=== PATIENT | male | born 1960 | race Caucasian/White ===

== ENCOUNTER → 2023-11-25 15:03 | Outpatient (REF) | payer OTHER, SELFPAY | LOC: RCS 15:03 | PROVIDERS: ATTENDING PHYSICIAN Internal Medicine Cardiovascular Disease; FAMILY PHYSICIAN Family Medicine | DX: I10 Essential (primary) hypertension (principal) | CPT/HCPCS: 93306 ==

== ENCOUNTER 2024-03-09 08:50 | Day surgery (SDC) | payer OTHER, SELFPAY ==
[2024-03-09] VITALS (11 sets, daily range): BP systolic 127–168; BP diastolic 69–93; BMI 28.5
[2024-03-09 09:29] LABS: Hematocrit 47.3 % (39.0-52.0); Hemoglobin 16.3 g/dL (13.0-18.0); Mean Corp Hgb Conc. 34.5 g/dL (33.0-37.0); Mean Corpuscular Hgb 31.3 pg (27.0-31.0); Mean Corpuscular Volume 90.8 fL (80.0-94.0); Mean Platelet Volume 9.9 fL (7.4-10.4); Platelet Count 183 10^3/uL (130-400); Red Blood Cell Count 5.21 10^6/uL (4.70-6.10); Red Cell Dist. Width 12.5 % (11.5-14.5); White Blood Cell Count 9.6 10^3/uL (4.8-10.8)
[2024-03-09] MEDS: LOW STRENGTH ASPIRIN 81 MG PO (09:33)
[2024-03-09 09:38] LABS: ALT (SGPT) 33 U/L (0-50); AST (SGOT) 27 U/L (17-59); Albumin 4.7 g/dl (3.5-5.0); Alkaline Phosphatase 50 U/L (38-126); Blood Urea Nitrogen 17 mg/dl (9-20); Calcium 9.6 mg/dl (8.4-10.2); Carbon Dioxide 27 mmol/L (22-30); Chloride 105 mmol/L (98-107); Estimated Creatinine Clearance 92 ml/min; Glucose 121 mg/dl (70-99); Potassium 5.1 mmol/L (3.5-5.1); Sodium 142 mmol/L (135-145); Total Bilirubin 0.6 mg/dl (0.2-1.3); Total Protein 7.6 g/dl (6.3-8.2); eGFR > 60.00
--- NOTE | 2024-03-09 09:52 | ITS.CL.CATH ---
Fire Alarm Inspector - Catheterization
Cardiac Catheterization
Procedure Report:
LEFT HEART CATHETERIZATION
Date of Procedure: March 09, 2024
Referring: Alexus Pratt MD, [facility], [facility]
PROCEDURES:
1. Left heart catheterization, coronary angiogram.
2. Right heart catheterization.
3. Ultrasound-guided access
INDICATION: Taras is a 62-year-old gentleman with past medical history of poorly controlled hypertension, hyperlipidemia, tobacco abuse, smoking 1 pack of cigarettes daily for the last 40 years, third-degree heart block with symptomatic syncope
status post Medtronic permanent pacemaker in September 2019, moderate aortic stenosis with recent echocardiogram with mildly reduced LV systolic function, LVEF of 45% with hypokinesis of the mid anteroseptum and apical septum, mitral sclerosis without
stenosis, moderate to severe aortic stenosis, peak aortic valve velocity of 3.6 cm/s, peak and mean transaortic gradients of 53 and 28 mmHg, LVOT diameter of 2.1 cm, dimensionless index of 0.26, stroke-volume index of 31 cc/m� and trace aortic
regurgitation who is referred for a left and right heart catheterization in the setting of ongoing dyspnea on exertion.
ACCESS: Right radial artery, 6 Georgian sheath, under ultrasound guidance
HEMODYNAMICS : (mmHg)
RA (m) : 16
RV (s/d,m) : 39/16, 19
PA (s/d, m) : 32/21, 26
PCWP (m) : 20
PA saturation: 69.4% on room air
AO saturation: 89.5% on room air
RA saturation: 72.2% on room air
Cardiac Output : 5.63 L/min by Nam calculation
Cardiac Index : 2.69 L/min/m-2 by Nam calculation
Systemic vascular resistance: 1236 dsc^(-5)
Pulmonary vascular resistance: 1.42 gomez unit
AO (s/d) : 131/75
LV (s/d) : 168/14
LVEDP : 24
Heart rate: 69 beats per minute
Invasive transaortic mean gradient of 37 mmHg, aortic valve area of 0.97 cm�
CORONARY FINDINGS--the left coronary artery was selectively engaged using a 6 Georgian AL-1 diagnostic catheter.
DOMINANCE: Right
LEFT MAIN: The left main artery is a large-caliber vessel which gives rise to the left anterior descending artery and the left circumflex artery. There is minimal luminal irregularities.
LEFT ANTERIOR DESCENDING: The left anterior descending artery is a medium caliber vessel which gives rise to 1 small caliber high rising diagonal and a second large caliber branching diagonal branch as it courses through the anterior
interventricular groove. It tapers in the midportion towards the apex. There is minimal luminal irregularities.
CIRCUMFLEX: The left circumflex artery is a medium caliber vessel which gives rise to 1 major obtuse marginal branch. There is a mild diffuse atherosclerotic plaque.
RIGHT CORONARY ARTERY: The right coronary artery is a large-caliber, dominant vessel which gives rise to the right posterior descending artery and a sizable right posterolateral system. Mid RCA has a focal 70 to 80% stenosis. Proximal portion of
the RPL proximal to the branches has a 70 to 80% stenosis.
SEDATION: 64 minutes of procedural sedation was utilized. An independent medical assembler was present to assist with and help manage the patient's level of consciousness and physiologic status.
RADIATION SUMMARY: Fluoro Time (min): 8, Dose (mGy): 620.3, DAP (Gy.cm2) : 35.8
Closure Device:
1. Vascular band over right radial artery, 11 cc of air.
2. Manual pressure was held over the right brachial venous access site with successful hemostasis.
CONCLUSIONS
1. Focal 70 to 80% mid RCA stenosis.
2. Tubular 70 to 80% proximal RPL stenosis.
3. Invasive transaortic mean gradient of 37 mmHg, aortic valve area of 0.97 cm� concerning for severe aortic stenosis.
4. Significantly elevated right left-sided filling pressures with normal cardiac output
RECOMMENDATIONS
1. Refer for CT surgery consult for consideration for surgical AVR and one-vessel coronary artery bypass grafting to the RCA in the setting of mild LV dysfunction and the invasive data as above.
2. Wean radial band per protocol.
3. Aggressive management of cardiovascular risk factors.
4. Optimization of current medications to improve filling pressures and symptoms.
5. Eventual referral for outpatient cardiac rehab.
6. Strongly re- encouraged complete smoking cessation.
Alexus Pratt MD, FACC, [facility]
== END 2024-03-09 14:30 | disposition home or self-care (01) ==
LOC: CATH 08:50
PROVIDERS: ATTENDING PHYSICIAN Internal Medicine Interventional Cardiology; CONSULT PHYSICIAN Thoracic Surgery (Cardiothoracic Vascular Surgery); FAMILY PHYSICIAN Family Medicine; OTHER PHYSICIAN Internal Medicine Cardiovascular Disease
DX: I35.0 Nonrheumatic aortic (valve) stenosis (principal); I25.10 Atherosclerotic heart disease of native coronary artery without angina pectoris; I08.0 Rheumatic disorders of both mitral and aortic valves; R06.09 Other forms of dyspnea; Z95.0 Presence of cardiac pacemaker; E78.5 Hyperlipidemia, unspecified; I10 Essential (primary) hypertension; R55 Syncope and collapse; I44.2 Atrioventricular block, complete; F17.210 Nicotine dependence, cigarettes, uncomplicated
CPT/HCPCS: 99152; 99153; 80053; 85027; 93460; C1894; Q9967

== ENCOUNTER → 2024-03-27 13:20 | Outpatient (REF) | payer OTHER, SELFPAY | LOC: RAD 13:20 | PROVIDERS: ATTENDING PHYSICIAN Thoracic Surgery (Cardiothoracic Vascular Surgery); FAMILY PHYSICIAN Family Medicine | DX: I35.0 Nonrheumatic aortic (valve) stenosis (principal); I25.10 Atherosclerotic heart disease of native coronary artery without angina pectoris; Z01.818 Encounter for other preprocedural examination | CPT/HCPCS: 75572; Q9967 ==

== ENCOUNTER 2024-05-01 04:49 | Inpatient (IN) | payer OTHER, SELFPAY ==
[2024-04-02 08:55] VITALS: BMI 28.7
[2024-04-02 09:50] LABS: % Basophils 0.6 % (0-2); % Eosinophils 2.6 % (0-6); % Immature Granulocytes 0.5 % (0-0.5); % Lymphocytes 21.4 % (20.5-51.1); % Neutrophils 62.9 % (42.2-75.2); Absolute Basophils 0.1 10^3/uL (0-0.2); Absolute Eosinophils 0.2 10^3/uL (0-0.7); Absolute Lymphocytes 1.9 10^3/uL (1.2-3.4); Absolute Monocytes 1.1 10^3/uL (0.1-0.6); Absolute Neutrophils 5.6 10^3/uL (1.4-6.5); Hematocrit 44.3 % (39.0-52.0); Hemoglobin 15.7 g/dL (13.0-18.0); Mean Corp Hgb Conc. 35.4 g/dL (33.0-37.0); Mean Corpuscular Hgb 31.2 pg (27.0-31.0); Mean Corpuscular Volume 88.1 fL (80.0-94.0); Mean Platelet Volume 9.9 fL (7.4-10.4); Nucleated Red Blood Cells % 0 % (-); Platelet Count 176 10^3/uL (130-400); Red Blood Cell Count 5.03 10^6/uL (4.70-6.10); Red Cell Dist. Width 12.3 % (11.5-14.5); White Blood Cell Count 8.8 10^3/uL (4.8-10.8)
[2024-04-02 10:00] LABS: INR 0.89; PT 12.5 Sec (11.4-14.6)
[2024-04-02 10:01] LABS: Urine Albumin Negative (Neg - Trace); Urine Bilirubin Negative (Negative); Urine Character Clear (Clear); Urine Color Yellow; Urine Glucose Negative (Negative); Urine Ketone Negative (Negative); Urine Leukocyte Negative (Negative); Urine Nitrite Negative (Negative); Urine Occult Blood Negative (Negative); Urine Urobilinogen Negative (Neg - 1+)
[2024-04-02 10:01] LABS: APTT 34.6 Sec (23.4-35.0)
[2024-04-02 10:29] LABS: ALT (SGPT) 43 U/L (0-50); AST (SGOT) 31 U/L (17-59); Albumin 4.7 g/dl (3.5-5.0); Alkaline Phosphatase 69 U/L (38-126); Blood Urea Nitrogen 18 mg/dl (9-20); Calcium 9.6 mg/dl (8.4-10.2); Carbon Dioxide 25 mmol/L (22-30); Chloride 102 mmol/L (98-107); Direct Bilirubin 0.2 mg/dl (0.0-0.4); Estimated Creatinine Clearance 92 ml/min; Glucose 132 mg/dl (70-99); Potassium 4.3 mmol/L (3.5-5.1); Sodium 138 mmol/L (135-145); Total Bilirubin 0.8 mg/dl (0.2-1.3); Total Protein 7.6 g/dl (6.3-8.2); eGFR > 60.00
--- NOTE | 2024-04-02 10:30 | CM ---
CM met w/ patient, sig. other/Jes and brother, Rodrigue during PATs for planned AVR, 04/17.
Pt. resides w/ sig. other in a private 2 story home w/ 2-3 LINDA. Functionally, patient is indep. w/ ADLs, mobility without the use of any assisted device. 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
Pt. has RX plan and uses [facility] in [place] for prescription needs.
Reviewed pre and post op routines.
Soap, shower instructions and Cardiac Surgery booklet provided.
Discussed post op restrictions to include lifting, driving, flying and sternal precautions.
Discussed post op MD appointments, Cardiac Rehab and visit from CT Transitional Care RN.
Plan for AVR 04/17
Anticipated DC plan is for home w/ CT Transitional Care RN.
CM to follow.
[2024-04-02 10:51] LABS: Glycohemoglobin (HgbA1c) 5.9 % (4.0-5.6)
[2024-05-01] VITALS (15 sets, daily range): BP systolic 85–152; BP diastolic 59–84; BMI 27.7
[2024-05-01] MEDS: MAGNESIUM OXIDE 500 MG PO (05:48)
[2024-05-01] MEDS: LOPRESSOR 25 MG PO (05:48)
[2024-05-01] MEDS: BACTROBAN 2% OINTMENT 1 APPLIC NASAL ×2 (05:48→20:20)
[2024-05-01] MEDS: PROTONIX 40 MG PO (05:48)
--- NOTE | 2024-05-01 06:30 | W.CVOR.SURPR ---
CVOR Surgeon Immed Pre Op
-
I have examined this patient prior to performance of the scheduled procedure.
The patient's condition is unchanged from the time of the dictated/written History and
Physical and the patient is able to undergo the scheduled procedure.
AVR (bio) + CABG + PHILOMENA Clip
--- NOTE | 2024-05-01 06:56 | PTCARENOTE ---
admitted pt to 2260, NPO and 2 showers at home confirmed, clipped and prepped with CHG wipes, home med list reviewed, transported to [facility]
[2024-05-01 07:16] LABS: Urine Albumin 2+ (Neg - Trace); Urine Bilirubin Negative (Negative); Urine Character Clear (Clear); Urine Color Yellow; Urine Glucose Negative (Negative); Urine Ketone Negative (Negative); Urine Leukocyte Negative (Negative); Urine Nitrite Negative (Negative); Urine Occult Blood 2+ (Negative); Urine Urobilinogen Negative (Neg - 1+)
[2024-05-01 07:30] LABS: ACT+ - POC 96 Seconds (82-134)
[2024-05-01 07:41] LABS: B.E. - POC -0.5 mmol/L; Glucose - POC 136 mg/dl (70-99); HCO3 - POC 25 mmol/L (21-28); Hematocrit - POC 36 % PCV (42-52); Hemodilution- POC No; Hemoglobin Calculated - POC 12.4; Ionized Calcium - POC 1.26 mmol/L (1.15-1.33); Lactate - POC 0.58 mmol/L (0.36-0.75); O2 Saturation %Calculated-POC 99.9 % (94-98); PCO2 - POC 44 mmHg (35-48); PO2 - POC 356 mmHg (83-108); Potassium - POC 4.3 mmol/L (3.5-5.1); Sodium - POC 140 mmol/L (136-145); Specimen Type - POC Arterial; pH - POC 7.37 (7.35-7.45)
[2024-05-01] MEDS: ANCEF 10 IV ×2 (08:00→10:45)
[2024-05-01 08:38] LABS: B.E. - POC 1.7 mmol/L; Glucose - POC 156 mg/dl (70-99); HCO3 - POC 27 mmol/L (21-28); Hematocrit - POC 36 % PCV (42-52); Hemodilution- POC Yes; Hemoglobin Calculated - POC 12.2; Ionized Calcium - POC 1.13 mmol/L (1.15-1.33); Lactate - POC 0.88 mmol/L (0.36-0.75); O2 Saturation %Calculated-POC 99.9 % (94-98); PCO2 - POC 47 mmHg (35-48); PO2 - POC 274 mmHg (83-108); Potassium - POC 5.8 mmol/L (3.5-5.1); Sodium - POC 139 mmol/L (136-145); Specimen Type - POC Arterial; pH - POC 7.38 (7.35-7.45)
[2024-05-01 09:18] LABS: ACT+ - POC 543 Seconds (82-134)
[2024-05-01 09:34] LABS: B.E. - POC 0.4 mmol/L; Glucose - POC 187 mg/dl (70-99); HCO3 - POC 26 mmol/L (21-28); Hematocrit - POC 35 % PCV (42-52); Hemodilution- POC Yes; Ionized Calcium - POC 1.16 mmol/L (1.15-1.33); O2 Saturation %Calculated-POC 99.9 % (94-98); PCO2 - POC 44 mmHg (35-48); PO2 - POC 289 mmHg (83-108); Potassium - POC 6.6 mmol/L (3.5-5.1); Sodium - POC 138 mmol/L (136-145); Specimen Type - POC Arterial; pH - POC 7.38 (7.35-7.45)
[2024-05-01 09:35] LABS: Urine Mucus Few; Urine Urothelial Cell 0-2 /LPF (FEW)
[2024-05-01 09:36] LABS: Urine Amorphous Seen
[2024-05-01 09:37] LABS: Urine White Cell 0-2 /HPF (0-5)
[2024-05-01 09:48] LABS: ACT+ - POC 585 Seconds (82-134)
[2024-05-01 10:10] LABS: B.E. - POC 1.2 mmol/L; Glucose - POC 176 mg/dl (70-99); HCO3 - POC 27 mmol/L (21-28); Hematocrit - POC 35 % PCV (42-52); Hemodilution- POC Yes; O2 Saturation %Calculated-POC 99.1 % (94-98); PCO2 - POC 48 mmHg (35-48); PO2 - POC 145 mmHg (83-108); Potassium - POC 5.3 mmol/L (3.5-5.1); Sodium - POC 142 mmol/L (136-145); Specimen Type - POC Arterial; pH - POC 7.36 (7.35-7.45)
[2024-05-01 10:16] LABS: ACT+ - POC 98 Seconds (82-134)
[2024-05-01 10:51] LABS: B.E. - POC -1.8 mmol/L; Glucose - POC 118 mg/dl (70-99); HCO3 - POC 25 mmol/L (21-28); Hematocrit - POC 34 % PCV (42-52); Hemodilution- POC Yes; Hemoglobin Calculated - POC 11.5; Ionized Calcium - POC 1.27 mmol/L (1.15-1.33); PCO2 - POC 51 mmHg (35-48); PO2 - POC 499 mmHg (83-108); Potassium - POC 4.1 mmol/L (3.5-5.1); Sodium - POC 144 mmol/L (136-145); Specimen Type - POC Arterial
[2024-05-01 10:54] LABS: ACT+ - POC > 1003 Seconds (82-134)
[2024-05-01 10:54] LABS: ACT+ - POC > 1003 Seconds (82-134)
--- NOTE | 2024-05-01 11:11 | CM ---
Chart reviewed. Patient is in the OR today. Patient is independent of ADLS, lives with his significant other in a 2 STH, 2-3 LINDA, 0 DME. Plan is for the patient to return home with CT Transitional RN. CM to follow
--- NOTE | 2024-05-01 11:14 | W.PN.CT.SURG ---
CT Surgery Operative Note
-
CARDIAC SURGERY OPERATIVE REPORT
Preoperative Diagnosis: Aortic valve stenosis with CAD
Postoperative Diagnosis: Same
Procedure(s) Performed:
1. Standard sternotomy with aortic and right atrial cannulation
2. Coronary bypass grafting x 2 [RSVG to RPDA sequential to RPL]
3. Surgical aortic valve replacement [25 mm bioprosthesis]
4. Left atrial appendage exclusion [35 mm clip]
5. Placement of temporary atrial and ventricular pacing wires
6. Intraoperative interrogation of PPM
7. Transesophageal echocardiography
8. Endoscopic vein harvest of the right lower extremity
Date of Surgery: 05/01/24
Comorbidities:
1. Severe aortic valve stenosis, symptomatic
2. Third-degree heart block, status post pacemaker implantation preoperatively
3. Hypertension
4. Hyperlipidemia
5. Reduced left ventricular ejection fraction with EF of 45%, chronic congestive systolic and diastolic heart failure
6. Mild mitral valve insufficiency
7. Single-vessel coronary artery disease
8. Obese with a BMI of 27
Attending Surgeon: Zaire Gonzalez MD, MS
Assistants: Roxana Stanley PA-C (present and necessary to metal moulder's assistant, retraction, suction, exposure, suture management, and wound closure under my direction), Zaire Coffey PA-C (Endo vein harvest)
Anesthesiology: Emery Oliver MD and Tara Denton CRNA
Scrub and Circulating RNs: Alma Delia Herrera RN, Alva Gaitan RN
Prior Authorization Technician: Sam Estrada CCP
Anesthesia: GETA
EBL: per perfusion records
Products: none
CPB Time: 108 minutes
Aortic Cross Clamp Time: 88 minutes
Indication(s) for Procedures: This is a 63-year-old male with multiple comorbidities including coronary artery disease and severe aortic valve stenosis. He has reduced left ventricular ejection fraction with hypokinesis of the mid anterior septum
and apical septum. He has become more recently symptomatic in the form of shortness of breath with increased fatigue at work, this has become apparent over the last 6 months. His mean aortic valve gradient was 28 on invasive measurements with a
max velocity of 3.6 across his valve, I do believe he has low-flow low gradient severe aortic valve stenosis. Given his elevated [id number] score he was also counseled about management of his left atrial appendage.
Aortic Valve Description: Heavily calcified aortic valve, trileaflet with mostly calcification towards the body and annulus of the noncoronary cusp. Left and right coronary ostia within normal anatomic positions.
Findings: There is left ventricular ejection fraction roughly was low normal at 50%. Following surgery his EF was 60% with no significant new regional wall motion abnormalities. His aortic valve was heavily calcified with infiltration of calcium
into the noncoronary cusp. His valve was replaced with a 25 mm prosthesis secured in place with a total of 16 nonpledgeted 2 Ethibond sutures with core knots. Both left and right coronary ostia were free of any obstruction with implantation of the
valve. A double vessel bypass was performed to his RPL and RPDA branch in a sequential fashion using a vein graft. Test dosing of antegrade was given on the graft and yielded excellent flow and hemostasis. At the inclusion of the case, he was in
third-degree heart block with erratic pacing from his PPM. Either he had an R-on-T or entrainment of air into the right coronary resulting in V. tach which resolved spontaneously. Additional atrial and ventricular pacing wires were placed with
overdrive pacing at 80 bpm with good effect. His permanent pacemaker was interrogated in operating room found to have appropriate thresholds and function. This was likely because he was asynchronous at that time. At the inclusion the case, he was
back in a sinus rhythm with a sensing and V pacing at a rate of 60 to 63 bpm. He did not require any inotropic support. He did not require any blood products. Cardiac index was around 1.7-1.8 at that time.
Specimen(s): Aortic valve leaflets.
Prosthesis:
1. 35 mm left atrial appendage clip, serial #[id number]
2. 25 mm Remy Inspiris Resilia aortic valve, serial #[id number]
Description of Procedure: The patient was taken to the operating room. Their identity and procedure to be performed were verified and they were positioned supine on the operating table. Induction via general anesthesia with endotracheal intubation
was performed and central venous access and arterial monitoring were inserted. A preoperative transesophageal echocardiogram was performed to assess cardiac function and valvular function. The patient was then prepped and draped from chin to feet in
a sterile fashion. A preoperative time-out was performed with all members of the team present. A midline chest incision was performed along with median sternotomy. The innominate vein was isolated. Full heparinization was given (a total of 45,000
units). We created a pericardial well. The aortic cannulation site was chosen where it was soft, pliable, and free of calcium. Cannulation was performed with an arterial cannula in the ascending aorta and a triple-stage venous cannula through the
right atrial appendage. The arterial cannula line had an appropriate bounce and correlating pressures with test dosing. Next, a root vent/antegrade cannula was inserted into the ascending aorta. The ACT was confirmed to be over 400 and retrograde
autologous priming was performed before commencing cardiopulmonary bypass. The pulmonary artery was away from the aorta to facilitate a clamp site and aortotomy. A left ventricular vent was placed at the right superior pulmonary vein and
secured. The aortic cross-clamp was placed after decreasing the flow on the bypass and mean arterial pressure. A total of 1.2L initial dose of antegrade Del-Nido cardioplegia solution was given and planned for re-dosing every 75 minutes as
necessary. There was rapid electro-mechanical arrest of the heart at 300 cc of cardioplegia. The left ventricle was observed for distention on echocardiogram and manual palpation. Cold slush was placed into a sponge and topically on the RV while we
systemically cooled to 34 degrees centigrade.
Once heart was fully arrested it was rotated medially and the left atrial appendage was identified and clipped with a 35 mm device flush to the base. The heart was then replaced back into the pericardial well and I positioned it in order to expose
the RPL and RPDA branches. The vein graft was taken and beveled accordingly and a small coronary arteriotomy was created at the RPL branch and end-to-side anastomosis was performed with 8-0 Prolene as the distal target was quite small and thin.
Test dosing of antegrade yielded excellent mean flow. 2 repair sutures were placed in order to reinforce the adventitia and promote hemostasis. Next the underbelly of the vein was incised and enlarged followed by another coronary arteriotomy at
the RPDA branch. A [id number]-ma-ggma anastomosis was then created with 7-0 Prolene in a running fashion. Test dosing of antegrade down the graft initially to the RPDA then to both yielded excellent flow at approximately 70 cc a minute at a pressure of
80 mmHg. Carbon dioxide was used to flood the field. We manually identified the location of the right coronary take off. An aortotomy was made approximately 2cm above the sinotubular junction. The location of both left and right coronary vessels
were visualized in the root.The leaflets were excised and sent for pathological assessment. The annulus was debrided of any calcium being mindful of the annulus and membranous septum. The root and left ventricular outflow tract were thoroughly
irrigated to remove any debris. A total of 16 non-pledgeted 2-0 ethibond inverted annular sutures were placed [id number] circumferentially. These were brought through the sewing cuff of the prosthetic valve which as then parachuted into place.
The left and right coronary ostia were visualized and were unobstructed by the valve. A Cor-Knot device was used to secure the annular sutures. The valve was inspected and was well seated. The aortotomy was approximated with 4-0 prolene in two
layers. A single aortotomy was created with an 11 blade and enlarged with a 4.0 punch. An end-to-side anastomosis was created with the vein graft using 6-0 Prolene in a running fashion. De-airing maneuvers were performed and temporary bipolar
ventricular pacing wires were placed on the base of the right ventricle. The patient was placed in a Trendelenburg position and flows on bypass were lowered. The aortic cross clamp was removed and flows were slowly brought back up. The aortotomy
appeared hemostatic. Transesophageal echocardiography revealed no paravalvular leak and appropriate prosthetic function. Once de-airing was satisfactory, the left ventricular and root vents were removed. After verifying acceptable parameters, we
initiated weaning from cardiopulmonary bypass. Once we were off cardiopulmonary bypass, the venous cannula was clamped and removed. At this point, there was asynchronous pacing. There is also a possibility of air entrainment to the right coronary
artery. He had 2 episodes of ventricular tachycardia that spontaneously resolved. However during this time I did reinstitute cardiopulmonary bypass with plans to have the permanent pacemaker interrogated. Additional atrial pacing wires were
placed at the right atrial SVC junction and I was able to overdrive pace him at a rate of 80 at a DDD setting with good effect. I then resumed weaning off of cardiopulmonary bypass and once again remove the venous line. A test dose of protamine
was administered and the patient was monitored for any adverse reaction before resuming protamine. Once half of the protamine dose was delivered, pump suckers were turned off and the systolic blood pressure was lowered for aortic decannulation. The
aortic cannula was removed and pursestrings were tied down. All cannulation sites were oversewn with a 4-0 prolene. The aortotomy suture line was inspected and hemostasis was confirmed. Mediastinal hemostasis was obtained. Two 24Fr Boom drains were
placed within the pericardium. The sternum was approximated with 4#7 single and 3 #8 double stainless steel wires. Fascia was approximated with #1 vicryl suture. The subcutaneous, dermis and epidermis were closed in layers in a running fashion. The
skin wound was cleansed and dressed.
All instrument, sponge, and needle counts were confirmed to be correct x 2 at the end of the operation. The patient was transferred to the cardiac intensive care unit in critical but stable condition.
I, Dr. Zaire Gonzalez, was present, scrubbed for, and performed all critical elements of this procedure.
Zaire Gonzalez MD, MS
Cardiothoracic Surgeon
[facility]
This operative dictation was created using the [employer] dictation system. Please excuse any grammatical, typographical, or 'sound alike' errors
[2024-05-01 11:22] LABS: Glucose - Point of Care 175 mg/dl (70-99)
[2024-05-01 11:26] LABS: Hematocrit 37.4 % (39.0-52.0); Hemoglobin 13.1 g/dL (13.0-18.0); Platelet Count 167 10^3/uL (130-400)
[2024-05-01 11:27] LABS: B.E. -3.1 mmol/L; Ionized Calcium 1.17 mMOL/L (1.15-1.33); O2 Saturation % 99.4 % (94-98); PCO2 50 mmHg (35-48); PO2 202 mmHg (83-108); Sodium 137 mMOL/L (136-145); pH 7.29 (7.35-7.45)
--- NOTE | 2024-05-01 11:34 | W.PN.CARDCBS ---
Addendum entered and electronically signed by Avinash Covington MD 05/01/24 12:17:
63-year-old man with hypertension, heart block, Medtronic dual-chamber pacemaker, CAD and aortic stenosis with mild ischemic/nonischemic cardiomyopathy
CABG (SVG to RPDA sequential to posterolateral), 25 mm Remy Inspiris aortic valve, 35 mm left atrial appendage clip 05/01/2024
Patient seen immediately postop, still intubated sedated, on norepinephrine, insulin, and Precedex
Appears comfortable on vent
Hemodynamics reviewed and satisfactory
Incisions intact, no rub or murmur, no edema breath sounds relatively clear
Chest x-ray: No active disease, pacer in place, Shushan in place, clip visualized, chest tubes, endotracheal tube
Labs pending
ECG sinus rhythm, ventricular pacing, wide QRS with prolonged QT
Impression:
Satisfactory status immediately postop CABG/AVR/left atrial appendage clip
Continue supportive care. As always appreciate efforts of CTS.
Original Note:
Today's Communication / Plan
-
continue post op care
Impression / Plan
-
[employer]: Dr. Pratt
Assessment:
-s/p bioAVR, CABG x2, PHILOMENA clip 05/01/24
-Mixed cardiomyopathy, EF 45% by echo preop, EF 55% by CONCHIS post op
-Complete heart block s/p Medtronic DC PPM 2019
-HTN
-HLD
-Back pain
-Tobacco use
Echo 11/25/2023: EF 45%, moderate concentric LVH, dyskinetic motion with hypokinesis of mid anteroseptum and apical septum, stage I diastolic dysfunction, mitral sclerosis, trace MR, moderate to severe with peak/mean gradients 53/28 mmHg, mild TR,
PAP 23 mmHg
Plan:
-s/p bioAVR, CABG x2, PHILOMENA clip 05/01/24
-intubated, sedated
-on levo @6, insulin @4, wean as able
-in asensed vpaced rhythm on review of post op EKG, repeat in AM
-hgb 13.1
-continue post op care
-prior to admission was on asa 81mg daily, lipitor 40mg QPM, lasix 20mg daily, lisinopril 40mg daily, toprol 25mg daily. will solidify post op regimen as nears discharge
-d/w nursing, CT surgery team
Progress Note - [employer]
Subjective
Date of Service: May 01, 2024
intubated, sedated
Objective
Labs:
Labs
Hgb 13.1 g/dL (13.0-18.0) 05/01/24 11:14
Hct 37.4 % (39.0-52.0) L 05/01/24 11:14
Plt Count 167 10^3/uL (130-400) 05/01/24 11:14
PT 12.5 Sec (11.4-14.6) 04/02/24 09:09
INR 0.89 04/02/24 09:09
APTT 34.6 Sec (23.4-35.0) 04/02/24 09:09
Sodium 138 mmol/L (135-145) 04/02/24 09:09
Potassium 4.3 mmol/L (3.5-5.1) 04/02/24 09:09
BUN 18 mg/dl (9-20) 04/02/24 09:09
Creatinine 0.9 mg/dL (0.7-1.3) 04/02/24 09:09
Glucose 132 mg/dl (70-99) H 04/02/24 09:09
Vital Signs and I&O:
Vital Signs
Temp Pulse Resp BP Pulse Ox
98.1 F 72 18 152/83 98
05/01/24 05:36 05/01/24 05:48 05/01/24 05:36 05/01/24 05:48 05/01/24 05:36
Vital Signs
Temp Pulse Resp BP Pulse Ox
98.1 F 72 18 152/83 98
05/01/24 05:36 05/01/24 05:48 05/01/24 05:36 05/01/24 05:48 05/01/24 05:36
Physical Exam
Physical Exam
GEN: No distress, intubated, sedated
HEENT: supple, mmm
LUNGS: CTA B/L, no wheezes
CV: Reg, S1/S2, no murmur
EXT: No cyanosis, clubbing. trace edema of B/L LE. RLE with nabor wrap in place
NEURO: sedated
SKIN: Warm, pink, dry. No rash. Sternotomy incision c/d/i. CTs in place. Temp wire in place.
[2024-05-01 11:37] LABS: Blood Urea Nitrogen 17 mg/dl (9-20); Estimated Creatinine Clearance 107 ml/min; Glucose 173 mg/dl (70-99); Magnesium 3.3 mg/dl (1.6-2.3)
--- NOTE | 2024-05-01 11:37 | W.PN.UPDATE ---
Update Note
Progress Note Update
63 y.o male electively admitted 05/01 for AVR CABG due to severe and CAD with HFrEF (45%)
IV fluids: 1200
U.O.:� 350
cell saver 450�
Blood:� none
Wires:� 2 atrial and 1 bipolar v-wire
Inotropes:� none
Pressors:� levophed
Sedatives:� precedex
�
NEURO: sedated pupils +2mm B/L
RESP: #8OT @23cm> 500/40%/14/5. Lungs clear B/L. 2 mediastinal (20cc on arrival) chest tubes to -20cm suction. Sanguineous drainage
CV: RRR +S1, S2, no S3, no�rub, no murmur. Dermabond to median sternotomy. RIJ w/[place] locked @ 55cm. PA 32/18; CVP XX; C.O XX/CI XX
ABD: round, soft, no BS
EXT: no edema, +2/4 DP pulses B/L, no femoral bruit, RLE RAMAN wrap intact; Left radial A-line intact
: [place] with clear yellow urine
�
A/P: POD #0 s/p aortic valve replacement [#25 mm bioprosthesis],
CONCHIS: EF�60%
- wean and extubate
- will need instruction regarding antibiotic prophylaxis for dental and invasive procedures
# CAD/HFrEF (EF 45%)
- will require ASA/Plavix, statin, beta-marcie
- will need GDMT
# Moderate LICA stenosis (50-69%)
- continue ASA/statin
# Current tobacco abuse w/ Incidental finding of multiple sub-6 mm solid juxtapleural pulmonary nodules
- per guideline recommendations: follow up CT in 12 months
- lifelong tobacco cessation
# Hx SSS s/p MDT PPM
- interrogated in OR
�
# acute surgical blood loss anemia-expected
- trend CBC
��
# Hyperlipidemia
- resume�
[2024-05-01 11:38] LABS: INR 1.32; PT 16.7 Sec (11.4-14.6)
[2024-05-01 11:40] LABS: APTT 32.3 Sec (23.4-35.0)
--- NOTE | 2024-05-01 12:00 | PTCARENOTE ---
Pt received from CVOR; Sedated and intubated; Pupils round, reactive, and equal; Vpaced rhythm on monitor; VSS; Epicardial pacemaker & perminant pacemaker present? with pacer settings DDD 80/15/15; DP and radial pulses present; Lungs clear
throughout; ETT size 8 positioned and secured at 23cm right lip; Ventilator settings SIMV 14/500/5 FiO2 40%; CTx2 to -20 cm wall suction draining bloody drainage - no air leak, tidaling, or crepitus noted; Hypoactive BS; [place] catheter in place
draining yellow clear urine; Skin CDI/ R Groin puncture site CDI/Sternal Midline Incision CDI/ R Leg wrapped in Wil wrap - CDI; Edema present +1 upper and lower extremeties; A-line in left radial artery - line zeroed and level; Bharat present in
right Cordis; PIVx1; Levo/insulin/precedex infusing; See nursing flowsheets for further details.
[2024-05-01 12:31] LABS: Glucose - Point of Care 142 mg/dl (70-99)
[2024-05-01 13:41] LABS: Glucose - Point of Care 143 mg/dl (70-99)
[2024-05-01 13:58] LABS: B.E. -0.8 mmol/L; HCO3 24.3 mmol/L (21-28); O2 Saturation % 99.4 % (94-98); PCO2 41 mmHg (35-48); PO2 188 mmHg (83-108); pH 7.38 (7.35-7.45)
[2024-05-01 13:59] LABS: Hematocrit 37.3 % (39.0-52.0); Hemoglobin 13.3 g/dL (13.0-18.0); Platelet Count 162 10^3/uL (130-400)
--- NOTE | 2024-05-01 14:03 | CON.INTV ---
Consultation
Consultation Request
Date/Time Consultation Requested: 05/01
Date/Time Consultation Performed: 05/01
Reason for Consultation: Critical care
Medical History
-
History of Present Illness:
History obtained from the chart as patient evaluated while intubated. 63-year-old male who was recently hospitalized few weeks ago, found to have multivessel coronary disease, severe arctic stenosis. Catheterization from March 2024 confirmed
elevated left-sided filling pressures at that time. Patient had noticed progressive shortness of breath over the past 6 months. He is status post CAB x 2 with surgical AVR 05/01/2024
.
PMH: Hypertension, aortic stenosis with prior ejection fraction 40 to 45%, aortic stenosis, history of pacemaker, history of third-degree AV block, pacemaker 2019. History of coronary disease per catheterization, hyperlipidemia
Past Medical History
Past Medical History: None (See above)
Past Surgical History: None (See above)
Social History
Tobacco: Smoker (Unfortunately continues to smoke about half a pack to a pack a day)
Alcohol: None
Drug: Marijuana (Occasionally)
Personal: Partner (Lives with girlfriend)
Living: Alone
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
Family History
Family History: Other (Father from blood cancer age 81, mother alive with dementia. No children. 2 brothers healthy)
Allergies / Home Medications
Allergies
Allergy/AdvReac Type Severity Reaction Status Date / Time
No Known Allergies Allergy Verified 10/11/19 16:25
Home Medications
�Medication �Instructions �Recorded �Confirmed �Last Taken �Type
ascorbic acid (vitamin C) 500 mg 1,000 mg PO HS Supplement 10/11/19 03/09/24 04/09/24 08:00 History
tablet (Vitamin C)
metoprolol succinate 25 mg 25 mg PO DAILY #30 tabs 10/12/19 03/09/24 04/30/24 05:00 Rx
tablet,extended release 24 hr
aspirin 81 mg chewable tablet 81 mg PO DAILY 03/09/24 03/09/24 04/30/24 05:00 History
atorvastatin 40 mg tablet 40 mg PO DAILY #90 tabs 03/09/24 04/30/24 05:00 Rx
furosemide 20 mg tablet (Lasix) 20 mg PO DAILY #90 tabs 03/09/24 04/30/24 05:00 Rx
lisinopril 40 mg tablet 40 mg PO DAILY 03/09/24 03/09/24 04/14/24 05:00 History
Review of Systems
-
Unable to Obtain full review of systems at this time due to: Patient Intubation
Vitals / Labs / Diagnostic Testing
Vital Signs
Temp Pulse Resp BP Pulse Ox
98.4 F 80 26 152/83 100
05/01/24 14:00 05/01/24 14:00 05/01/24 14:00 05/01/24 05:48 05/01/24 14:00
Lab Data
05/01/24 13:49
05/01/24 11:14
Laboratory Results
05/01/24 05/01/24
11:14 13:49
PT 16.7 H
INR 1.32
APTT 32.3
pH 7.29 L 7.38
pCO2 50 H 41
pO2 202 H 188 H
HCO3 24.0 24.3
O2 Delivery Level
Diagnostic Testing:
Physical Exam
-
HEENT: Normocephalic and Other (IJ, A-line, chest tube)
Cardiovascular: S1/S2, Regular Rhythm, Murmur (n), Rub (n) and Peripheral Edema (n)
Respiratory: Wheeze (n), Rales (n), Rhonchi (n) and Non-Labored Respirations
GI: Soft, Non Distended and Non Tender
Neurology: Other (Sedated, on CPAP)
Skin: Good Color
General: Comfortable
Assessment
-
63-year-old male with history of progressive shortness of breath, found to have multivessel coronary disease, severe arctic stenosis, status post CAB x 2, SAVR, 05/01/2024
S/p CAB x 2, SAVR
Multivessel coronary disease, severe aortic stenosis
Cardiomyopathy, EF 40%, elevated filling pressures per catheterization
Postoperatively EF 45%
Hyperglycemia
Conditions present prior to admission
Bronchial airway thickening, scattered pulm nodules
Per coronary CT 03/27/2024
History of third-degree heart block, pacemaker 2019
History of syncope
History of COVID
37-stry-avct history of smoking, ongoing
Hypertension/hyperlipidemia
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
At this time, patient is critically ill but stable
Presently on CPAP wean, soon to be extubated
Tidal volumes adequate on minimal support
CT chest reviewed preadmission. Bronchial airway thickening and small nodules. Likely IPLN
Moving forward
Continue with management per CT surgery
Suspect extubation soon
Preprocedure PFT with moderate COPD FEV1 67% with 22% bronchodilator response, mild hyperinflation, normal DLCO
Albuterol as needed for now
Follow chest tube output
Follow hemoglobin
Follow blood sugars
Smoking history noted, ongoing
Patient does qualify for lung cancer screening
Although prior CT coronary appears to be IPL and, would recommend low-dose CT screening for lung cancer
Patient may also benefit from maintenance inhaler therapy given the severity of his COPD based on his preoperative PFT
Will follow
TCCT 31 min
--- NOTE | 2024-05-01 14:30 | PTCARENOTE ---
PT placed on CPAP @ 1320; ABG Pulled @ 1350
PT extubated @ 1420to 6L NC, PT states name and , AAOx4
[2024-05-01] MEDS: DILAUDID 0.5 MG IV ×3 (14:33→22:01)
[2024-05-01 15:30] LABS: Glucose - Point of Care 144 mg/dl (70-99)
[2024-05-01 15:31] LABS: Glucose - Point of Care 139 mg/dl (70-99)
[2024-05-01] MEDS: LOW STRENGTH ASPIRIN 81 MG PO (16:20)
[2024-05-01] MEDS: NEURONTIN PO ×2 (16:25→23:47)
[2024-05-01] MEDS: NSS 500 IV (16:26)
[2024-05-01] MEDS: ANCEF 5 IV (17:24)
[2024-05-01] MEDS: PACERONE 200 MG PO (17:24)
[2024-05-01] MEDS: TYLENOL 1000 MG PO (17:25)
[2024-05-01] MEDS: NEURONTIN 300 MG PO (17:25)
[2024-05-01 17:59] LABS: Glucose - Point of Care 155 mg/dl (70-99)
[2024-05-01] MEDS: ZOFRAN 4 MG IV (18:09)
[2024-05-01] MEDS: CALCIUM GLUCONATE 290 MG IV (19:50)
[2024-05-01 20:01] LABS: Glucose - Point of Care 136 mg/dl (70-99)
[2024-05-01] MEDS: SENOKOT-S 1 TABLET PO (20:25)
--- NOTE | 2024-05-01 20:34 | PTCARENOTE ---
no change from previous assessment. see worklist
[2024-05-01 21:12] LABS: Glucose - Point of Care 118 mg/dl (70-99)
[2024-05-01 22:01] LABS: Glucose - Point of Care 126 mg/dl (70-99)
--- NOTE | 2024-05-01 23:00 | PTCARENOTE ---
Patient recieved from RN @2300. Patient lying in bed with call pozo in reach. VSS BP 116/70 HR 72 POX 95% RA. Patient is AOx4. Heart sounds audible V-paced w/ own pacemaker. AV wires present not hooked up to box, box turned on at bedside set to
80/15/15 DDD, good pulses no edema noted. PAP 20's/10's CVP~9. Rhonchi noted anterior bilaterally. [address] draining red fluid WNL. Suction set to 20 mmHg no tidaling or crepitus noted. Ventura draining clear yellow urine WNL.
Intermittent nausea relieved by zofran and alcohol pads.. Strength equal bilaterally. RIJ cordis patent and intact with swan. VIP and cordis running at 10mL/hr. Right wrist PIV patent and intact infusing insulin at 3.5 units/hr. Left wrist
A-line noted. Sternal incision well approximated open to air. Right leg w/ nabor wrap dry and intact. Right groin puncture dry and intact, well approximated. Last RN noted groin site as firm and placed nabor wrap overtop. Assessed, appears soft and
nabor wrap placed back overtop.
[2024-05-01 23:02] LABS: Glucose - Point of Care 118 mg/dl (70-99)
[2024-05-01] MEDS: LIPITOR PO (23:47)
[2024-05-02] VITALS (18 sets, daily range): BP systolic 110–138; BP diastolic 51–79; PULSE 75; O2SAT 98; BMI 28.3
[2024-05-02 00:22] LABS: Glucose - Point of Care 122 mg/dl (70-99)
[2024-05-02] MEDS: TYLENOL PO (00:31)
[2024-05-02] MEDS: REGLAN 10 MG IV (00:49)
[2024-05-02] MEDS: ANCEF 5 IV ×2 (01:27→08:21)
[2024-05-02] MEDS: ROXICODONE 5 MG PO ×5 (01:28→22:51)
[2024-05-02 02:07] LABS: Glucose - Point of Care 126 mg/dl (70-99)
--- NOTE | 2024-05-02 03:00 | PTCARENOTE ---
Patient reassessed. Assessment unchanged. VSS V-paced BP 116/61 HR 74 POX 95% RA. Patient lying in bed w/ call pozo in reach.
--- NOTE | 2024-05-02 03:34 | W.PN.CT ---
Today's Communication / Plan
-
Plan:
-No major issues overnight. Hemodynamically and neurologically intact. Alert and oriented x 3
-Successfully extubated @ 1420 on 05/01/24
-Weaned of Levophed gtt overnight. Remains on insulin gtt per protocol
-Last CI 2.48, u/o since OR 1100 mL
-EKG this AM suggestive of postop acute pericarditis, will give Toradol x 3, cr 0.9
-Monitor chest tube output: 2meds 290/480
-Cont. current meds (ASA, Plavix, Amiodarone, BB if bp permits, Lipitor)
-D/C'd swan and a-line @ 0430
-Will D/C arreaga catheter @ 0600
-Tele phase when off insulin gtt today per protocol
-Maintain temporary PW (will pull likely tomorrow)
-Maintain cordis
-Encourage use of IS
-Wean off of O2 as tolerated
-OOB into chair/Ambulate
Assessment / Plan
-
Assessment:
-S/p Standard sternotomy/ AVR (25 mm bioprosthesis)/CABG x 2 (RSVG to RPDA sequential to RPL)/ EVH RLE/LAAE (35 mm clip), by Dr. Gonzalez, 05/01/24, pod#1
-Severe aortic valve stenosis, symptomatic
-Single-vessel coronary artery disease involving RCA
-LVEF 55%, improved to 60% postop per intraop CONCHIS
-Reduced left ventricular ejection fraction with EF of 45%, chronic congestive systolic and diastolic heart failure
-Mild MR
-Third-degree heart block S/P PPM placement 09/2019
-Hypertension
-Hyperlipidemia
-Prediabetes (Hgb A1C 5.9)
-Active smoker (40 pk/yr)
-Arthritis
-Sciatica/back pain
-Acute postop blood loss/Anemia (stable without transfusion)
-Acute postop atelectasis
-Acute postop hypovolemia with subsequent hypervolemia
-EKG c/w acute postop pericarditis
Discussed patient care with: Cardiology, Nursing, Respiratory Therapy, Pharmacy and Care Team
Subjective
Procedure
S/p Standard sternotomy/ AVR (25 mm bioprosthesis)/CABG x 2 (RSVG to RPDA sequential to RPL)/ EVH RLE/LAAE (35 mm clip), by Dr. Gonzalez, 05/01/24
-
Date of Service: May 02, 2024
Pt c/o incisional pain and nausea, otherwise feels well
Objective Data
-
PT 16.7 Sec (11.4-14.6) H 05/01/24 11:14
INR 1.32 05/01/24 11:14
APTT 32.3 Sec (23.4-35.0) 05/01/24 11:14
Vital Signs
Vital Signs
Temp Pulse Resp BP Pulse Ox
99.6 F 75 17 116/61 95
05/02/24 03:07 05/02/24 03:07 05/02/24 03:07 05/02/24 03:00 05/02/24 03:07
CT Intake/Output/Weight
05/01/24 05/01/24 05/02/24
06:59 18:59 06:59
Intake Total 307.5 / 307.5
Output Total 690 / 1420 730 / 1420
Balance -690 / -1112.5 -422.5 / -1112.5
SaO2: 95 (RA)
Physical Exam
-
General: Awake, Oriented and AOx3
Cardiovascular: Regular rate & rhythm, No Murmurs, Rub (likely friction rub from chest tubes ) and No Gallop
Respiratory: Decreased Breath Sounds (at bases, otherwise clear)
Sternum: Stable
Incision: Clean, Dry, Intact and Dressing Intact
Extremities: Other (+trace edema)
Data Reviewed
-
Lab Results: Results Reviewed
Medications: Active Meds Reviewed
Chest X-Ray: Report Reviewed and Image Reviewed
ECG: Report Reviewed and Image Reviewed
[2024-05-02 03:38] LABS: Hematocrit 33.2 % (39.0-52.0); Mean Corp Hgb Conc. 36.1 g/dL (33.0-37.0); Mean Corpuscular Hgb 32.3 pg (27.0-31.0); Mean Corpuscular Volume 89.5 fL (80.0-94.0); Platelet Count 121 10^3/uL (130-400); Red Blood Cell Count 3.71 10^6/uL (4.70-6.10); Red Cell Dist. Width 12.6 % (11.5-14.5); White Blood Cell Count 19.7 10^3/uL (4.8-10.8)
[2024-05-02 03:56] LABS: Blood Urea Nitrogen 20 mg/dl (9-20); Calcium 8.7 mg/dl (8.4-10.2); Carbon Dioxide 24 mmol/L (22-30); Chloride 108 mmol/L (98-107); Estimated Creatinine Clearance 95 ml/min; Glucose 116 mg/dl (70-99); Magnesium 2.4 mg/dl (1.6-2.3); Potassium 4.4 mmol/L (3.5-5.1); Sodium 141 mmol/L (135-145); eGFR > 60.00
[2024-05-02 04:11] LABS: Glucose - Point of Care 114 mg/dl (70-99)
--- NOTE | 2024-05-02 04:20 | PTCARENOTE ---
Labs drawn and sent. EKG performed. Rincon and A-line removed per CT PA Ed.
[2024-05-02] MEDS: TORADOL 15 MG IV ×3 (04:35→20:05)
[2024-05-02 05:04] LABS: Glucose - Point of Care 93 mg/dl (70-99)
[2024-05-02 06:01] LABS: Glucose - Point of Care 109 mg/dl (70-99)
[2024-05-02] MEDS: NOVOLIN R INSULIN INFUSION 100 IV (06:08)
[2024-05-02] MEDS: TYLENOL 1000 MG PO ×3 (06:31→20:02)
[2024-05-02 07:03] LABS: Glucose - Point of Care 117 mg/dl (70-99)
--- NOTE | 2024-05-02 07:07 | W.PN.INTV ---
Today's Communication / Plan
Recommendations
Continue with supportive care, airway clearance
Pain control
Patient may benefit from maintenance inhaler therapy, this can be addressed as outpatient
Abnormal PFT noted
Assessment
-
63-year-old male with history of progressive shortness of breath, found to have multivessel coronary disease, severe arctic stenosis, status post CAB x 2, SAVR, 05/01/2024
S/p CAB x 2, SAVR
Multivessel coronary disease, severe aortic stenosis
Cardiomyopathy, EF 40%, elevated filling pressures per catheterization
Postoperatively EF 45%
Hyperglycemia
Conditions present prior to admission
Bronchial airway thickening, scattered pulm nodules
Per coronary CT 03/27/2024
History of third-degree heart block, pacemaker 2019
History of syncope
History of COVID
01-[id number]-[id number] history of smoking, ongoing
Hypertension/hyperlipidemia
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
At this time, patient appears comfortable
Chest exam clear
CT chest reviewed preadmission. Bronchial airway thickening and small nodules. Likely IPLN
Moving forward
Continue with management per CT surgery
Preprocedure PFT with moderate COPD FEV1 67% with 22% bronchodilator response, mild hyperinflation, normal DLCO
Albuterol as needed for now
Follow chest tube output
Follow hemoglobin
Follow blood sugars
Smoking history noted, ongoing
Patient does qualify for lung cancer screening
Although prior CT coronary appears to be IPL and, would recommend low-dose CT screening for lung cancer
Patient may also benefit from maintenance inhaler therapy given the severity of his COPD based on his preoperative PFT
Once transferred to telemetry, we will sign off. Please call with questions
Subjective Dataa
Subjective Data
Date of Service:
Date of Service: May 02, 2024
Subjective:
Patient is sitting in chair, feeling well. Had some mild nausea yesterday p.m., this morning ate breakfast without difficulty. Denies shortness of breath. Family at bedside
Objective Data
Data Reviewed
Vital Signs / I&O / Oxygen:
Vital Signs
Temp Pulse Resp BP Pulse Ox
99.1 F 81 20 123/65 97
05/02/24 06:01 05/02/24 06:05 05/02/24 06:05 05/02/24 06:05 05/02/24 06:01
Intake and Output
05/01/24 05/02/24 05/03/24
06:59 06:59 06:59
Intake Total 347.5 / 347.5
Output Total 1645 / 1645
Balance -1297.5 / -1297.5
SaO2 97
Physical Exam
General: Comfortable and Other (IJ, chest tube)
HEENT: Normocephalic and Anicteric
Cardiovascular: S1-S2, Regular Rhythm, Murmur (n) and Rub (n)
Respiratory: Wheeze (n), Crackles (n), Rhonchi (n) and Non-Labored Respirations
GI: Soft, Non Distended and Non Tender
Neurology: Awake, Alert and No Motor Deficits
Skin: Cyanosis (n), Jaundice (n) and Rash (n)
Labs/Micro/Reports
Lab Data
05/02/24 03:18
05/02/24 03:18
Laboratory Results
05/01/24 05/01/24
11:14 13:49
PT 16.7 H
INR 1.32
APTT 32.3
pH 7.29 L 7.38
pCO2 50 H 41
pO2 202 H 188 H
HCO3 24.0 24.3
O2 Delivery Level
--- NOTE | 2024-05-02 08:00 | PTCARENOTE ---
Assumed care of patient from senior management consultant RN. AAO x 3 sitting up in the chair. 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 Epicardial wires insulated. Room air 94%, chest tubes x 2 to -20 cm suction. No air leak or crepitus noted. Abdomen soft and non tender denies nausea.
Surgical sites c,d,i. Pulses palpable. Insulin drip per glycemic protocol. Plan for day discussed.
[2024-05-02 08:20] LABS: Glucose - Point of Care 99 mg/dl (70-99)
[2024-05-02] MEDS: SENOKOT-S 1 TABLET PO ×2 (08:20→20:02)
[2024-05-02] MEDS: PACERONE 200 MG PO ×3 (08:20→20:02)
[2024-05-02] MEDS: LOW STRENGTH ASPIRIN 81 MG PO (08:20)
[2024-05-02] MEDS: LOPRESSOR 12.5 MG PO ×2 (08:20→20:02)
[2024-05-02] MEDS: NEURONTIN 300 MG PO ×3 (08:20→20:05)
[2024-05-02] MEDS: PROTONIX 40 MG PO (08:20)
[2024-05-02] MEDS: PLAVIX 75 MG PO (08:20)
[2024-05-02] MEDS: BACTROBAN 2% OINTMENT 1 APPLIC NASAL ×2 (08:21→20:04)
[2024-05-02] MEDS: LIDOCAINE 4% PATCH 1 PATCH TOPICAL (08:21)
[2024-05-02] MEDS: NSS IV (09:35)
[2024-05-02 10:08] LABS: Glucose - Point of Care 146 mg/dl (70-99)
[2024-05-02 11:08] LABS: Glucose - Point of Care 126 mg/dl (70-99)
--- NOTE | 2024-05-02 11:47 | W.PN.CARDCBS ---
Today's Communication / Plan
-
Maintain amio and BB
Impression / Plan
-
Primary Cattyman: Dr. Dejon Mensah
Assessment:
-s/p bioAVR, CABG x2, PHILOMENA clip 05/01/24
-Mixed cardiomyopathy, EF 45% by echo preop, EF 55% by CONCHIS post op
-Complete heart block s/p Medtronic DC PPM 10/11/19
MRI December 10, 2019 finds no MRI findings suggestive of a diffuse infiltrative process.
-HTN
-HLD
-Back pain
-Tobacco use
Echo 11/25/2023: EF 45%, moderate concentric LVH, dyskinetic motion with hypokinesis of mid anteroseptum and apical septum, stage I diastolic dysfunction, mitral sclerosis, trace MR, moderate to severe with peak/mean gradients 53/28 mmHg, mild TR,
PAP 23 mmHg
Plan:
-s/p bioAVR, CABG x2, PHILOMENA clip 05/01/24
-Successfully extubated @ 1420 on 05/01/24
-pressors weaned to off and remains HD stable
-ECG this AM SR with atrial tracking and ventricular pacing
-continue post op care
-prior to admission was on asa 81mg daily, lipitor 40mg QPM, lasix 20mg daily, lisinopril 40mg daily, toprol 25mg daily. will solidify post op regimen as nears discharge
-d/w nursing, CT surgery team
Progress Note - Cattyman
Subjective
Date of Service: May 02, 2024
he is sitting in chair
he tells me he walked the [place] earlier today and feels a little fatigued
Objective
Labs:
05/02/24 03:18
05/02/24 03:18
Labs
Hgb 12.0 g/dL (13.0-18.0) L 05/02/24 03:18
Hct 33.2 % (39.0-52.0) L 05/02/24 03:18
Plt Count 121 10^3/uL (130-400) L D 05/02/24 03:18
PT 16.7 Sec (11.4-14.6) H 05/01/24 11:14
INR 1.32 05/01/24 11:14
APTT 32.3 Sec (23.4-35.0) 05/01/24 11:14
Sodium 141 mmol/L (135-145) 05/02/24 03:18
Potassium 4.4 mmol/L (3.5-5.1) 05/02/24 03:18
BUN 20 mg/dl (9-20) 05/02/24 03:18
Creatinine 0.9 mg/dL (0.7-1.3) 05/02/24 03:18
Glucose 116 mg/dl (70-99) H 05/02/24 03:18
Vital Signs and I&O:
Vital Signs
Temp Pulse Resp BP Pulse Ox
99.1 F 81 16 138/66 94
05/02/24 08:00 05/02/24 08:45 05/02/24 08:00 05/02/24 08:00 05/02/24 09:36
Vital Signs
Temp Pulse Resp BP Pulse Ox
99.1 F 81 16 138/66 94
05/02/24 08:00 05/02/24 08:45 05/02/24 08:00 05/02/24 08:00 05/02/24 09:36
Intake & Output
04/30/24 05/01/24 05/02/24 05/03/24
06:59 06:59 06:59 06:59
Intake Total 347.5 / 347.5 490 / 490
Output Total 1645 / 1645 110 / 110
Balance -1297.5 / -1297.5 380 / 380
Physical Exam
Physical Exam
fatigued appearing, no distress sitting in chair, chest tube in place
RRR, Nl S1 and S2, no S3 or S$, no rubs
Lungs CTA b/l
CT in place
--- NOTE | 2024-05-02 12:19 | PTCARENOTE ---
Tolerating sitting up in the chair. Pain medication as needed, able to void w/o issue. Tolerating PO intake. Insulin drip discontinued. VSS assessment otherwise unchanged from prior.
[2024-05-02] MEDS: FERRLECIT 110 MG IV (14:13)
[2024-05-02] MEDS: FLEXERIL 5 MG PO (15:54)
--- NOTE | 2024-05-02 16:04 | W.PN.ANS.POP ---
Anesthesia Post Operative
- Anesthesia Post Op Note
Vital Signs Stable-See Nursing Note: Yes
Airway Patent: Yes
Adequate Pain Control: Yes
Change in Mental Status: No
Current Postoperative Nausea & Vomiting: No
Anesthesia Complications: No
General Anesthetic Recall: No
Unplanned Admission: No
Post Op Hydration Adequate: Yes
[2024-05-02 16:36] LABS: Glucose - Point of Care 163 mg/dl (70-99)
--- NOTE | 2024-05-02 17:30 | PTCARENOTE ---
Ambulated full loop x 3. Room air. Pain well managed. Voiding w/o issue. VSS Will continue to follow.
--- NOTE | 2024-05-02 19:00 | PTCARENOTE ---
assumed care of patient @ 1900. received pt laying in bed, AOx3. VSS on RA. V paced with own pacemaker on monitor HR 70s. AV wires insulated. Box turned on at bedside DDD 80 , 15. +PP - E. Lungs with scattered rhonci, satting high 90s on room air.
2 mediastinal chest tubes to wall suction no air leak, tidaling or crepitus noted . voiding leona urine in urinal. tolerating diet well . 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 R IJ cordis with KVO, PIV both patent. pt resting comfortably in bed
with call pozo within reach .
[2024-05-02] MEDS: LIPITOR 40 MG PO (20:02)
[2024-05-03] VITALS (16 sets, daily range): BP systolic 89–146; BP diastolic 50–98; O2SAT 100; BMI 28.6
--- NOTE | 2024-05-03 | PTCARENOTE ---
5 of myrna given for pain, no other change in assessment .
--- NOTE | 2024-05-03 03:58 | W.PN.CT ---
Today's Communication / Plan
-
Plan:
-No major issues overnight. Hemodynamically and neurologically intact. Alert and oriented x 3
-Off all drips
-Consider d/c of chest tubes: 2meds 65/275
-D/C temporary pacer wires
-Cont. current meds (ASA, Plavix, Amiodarone, Lopressor switched to Toprol XL, Lipitor)
-Cont. to hold mag oxide
-Maintain cordis another day
-Encourage use of IS
-Wean off of O2 as tolerated
-OOB into chair/Ambulate
-Home in 1-2 days
Assessment / Plan
-
Assessment:
-S/p Standard sternotomy/ AVR (25 mm bioprosthesis)/CABG x 2 (RSVG to RPDA sequential to RPL)/ EVH RLE/LAAE (35 mm clip), by Dr. Gonzalez, 05/01/24, pod#2
-Severe aortic valve stenosis, symptomatic
-Single-vessel coronary artery disease involving RCA
-LVEF 55%, improved to 60% postop per intraop CONCHIS
-Reduced left ventricular ejection fraction with EF of 45%, chronic congestive systolic and diastolic heart failure
-Mild MR
-Third-degree heart block S/P PPM placement 09/2019
-Hypertension
-Hyperlipidemia
-Prediabetes (Hgb A1C 5.9)
-Active smoker (40 pk/yr)
-Arthritis
-Sciatica/back pain
-Acute postop blood loss/Anemia (stable without transfusion)
-Acute postop atelectasis
-Acute postop hypovolemia with subsequent hypervolemia
-EKG c/w acute postop pericarditis
Discussed patient care with: Cardiology, Nursing, Respiratory Therapy, Pharmacy and Care Team
Subjective
Procedure
S/p Standard sternotomy/ AVR (25 mm bioprosthesis)/CABG x 2 (RSVG to RPDA sequential to RPL)/ EVH RLE/LAAE (35 mm clip), by Dr. Gonzalez, 05/01/24
-
Date of Service: May 03, 2024
Pt c/o incisional pain, otherwise feels well. Nausea has resolved
Objective Data
-
PT 16.7 Sec (11.4-14.6) H 05/01/24 11:14
INR 1.32 05/01/24 11:14
APTT 32.3 Sec (23.4-35.0) 05/01/24 11:14
Vital Signs
Vital Signs
Temp Pulse Resp BP Pulse Ox
98.9 F 70 16 136/69 96
05/02/24 20:00 05/03/24 03:30 05/03/24 00:00 05/02/24 23:18 05/03/24 00:00
CT Intake/Output/Weight
05/02/24 05/02/24 05/03/24
06:59 18:59 06:59
Intake Total 347.5 / 347.5 890 / 1190 300 / 1190
Output Total 955 / 1645 310 / 800 490 / 800
Balance -607.5 / -1297.5 580 / 390 -190 / 390
SaO2: 96 (RA)
Physical Exam
-
General: Awake, Oriented and AOx3
Cardiovascular: Regular rate & rhythm, Rub and No Gallop
Respiratory: Decreased Breath Sounds
Sternum: Stable
Incision: Clean, Dry, Intact and Dressing Intact
Extremities: Other (+trace edema)
Data Reviewed
-
Lab Results: Results Reviewed
Medications: Active Meds Reviewed
Chest X-Ray: Report Reviewed and Image Reviewed
ECG: Report Reviewed and Image Reviewed
[2024-05-03] MEDS: ROXICODONE 5 MG PO ×2 (04:05→23:31)
[2024-05-03 04:27] LABS: Hematocrit 31.7 % (39.0-52.0); Hemoglobin 10.8 g/dL (13.0-18.0); Mean Corp Hgb Conc. 34.1 g/dL (33.0-37.0); Mean Corpuscular Hgb 31.7 pg (27.0-31.0); Mean Platelet Volume 10.1 fL (7.4-10.4); Platelet Count 101 10^3/uL (130-400); Red Blood Cell Count 3.41 10^6/uL (4.70-6.10); Red Cell Dist. Width 12.7 % (11.5-14.5); White Blood Cell Count 13.2 10^3/uL (4.8-10.8)
[2024-05-03 04:51] LABS: Blood Urea Nitrogen 25 mg/dl (9-20); Calcium 8.5 mg/dl (8.4-10.2); Carbon Dioxide 29 mmol/L (22-30); Chloride 105 mmol/L (98-107); Estimated Creatinine Clearance 85 ml/min; Glucose 123 mg/dl (70-99); Magnesium 2.2 mg/dl (1.6-2.3); Potassium 4.3 mmol/L (3.5-5.1); Sodium 138 mmol/L (135-145); eGFR > 60.00
[2024-05-03] MEDS: TYLENOL 1000 MG PO ×3 (05:57→21:14)
--- NOTE | 2024-05-03 07:20 | W.PN.INTV ---
Today's Communication / Plan
Recommendations
Continue management per CT surgery
Scattered nodules per CT chest noted
Continue lung cancer screening
Continue tobacco cessation efforts
Would recommend pulmonary follow-up as outpatient for evaluation for maintenance inhaler therapy
Follow-up information left in chart
Patient transferred to telemetry. We will sign off. Please call with questions
Assessment
-
63-year-old male with history of progressive shortness of breath, found to have multivessel coronary disease, severe arctic stenosis, status post CAB x 2, SAVR, 05/01/2024
S/p CAB x 2, SAVR
Multivessel coronary disease, severe aortic stenosis
Cardiomyopathy, EF 40%, elevated filling pressures per catheterization
Postoperatively EF 45%
Hyperglycemia
Conditions present prior to admission
Bronchial airway thickening, scattered pulm nodules
Per coronary CT 03/27/2024
History of third-degree heart block, pacemaker 2019
History of syncope
History of COVID
[id number] history of smoking, ongoing
Hypertension/hyperlipidemia
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
At this time, patient appears comfortable
Chest exam clear
CT chest reviewed preadmission. Bronchial airway thickening and small nodules. Likely IPLN
Reviewed spirometry with patient. Moderate COPD noted
Moving forward
Continue with management per CT surgery
Preprocedure PFT with moderate COPD FEV1 67% with 22% bronchodilator response, mild hyperinflation, normal DLCO
Albuterol as needed for now
Patient may benefit from maintenance therapy. This can be determined as outpatient
Discussed importance of tobacco cessation
Smoking history noted, ongoing
Patient states he has no desire to resume
Patient does qualify for lung cancer screening
Reviewed his high risk for lung cancer
Although prior CT coronary appears to be IPLN, would recommend low-dose CT screening for lung cancer as clinically indicated
Patient would qualify
Reviewed benefits of lung cancer screening
Reviewed benefits of tobacco cessation
Pulmonary follow-up information left in chart
We will sign off. Please call with questions
Subjective Dataa
Subjective Data
Date of Service:
Date of Service: May 03, 2024
Subjective:
Patient is feeling well. Describes mild cough. Denies chest pain, chest tightness, lightheadedness, dizziness. Family at bedside
Objective Data
Data Reviewed
Vital Signs / I&O / Oxygen:
Vital Signs
Temp Pulse Resp BP Pulse Ox
98.6 F 79 16 130/54 96
05/03/24 04:00 05/03/24 04:15 05/03/24 04:00 05/03/24 04:09 05/03/24 04:01
Intake and Output
05/02/24 05/03/24 05/04/24
06:59 06:59 06:59
Intake Total 347.5 / 347.5 1470 / 1470
Output Total 1645 / 1645 1225 / 1225
Balance -1297.5 / -1297.5 245 / 245
SaO2 96
Physical Exam
General: Comfortable
HEENT: Normocephalic and Anicteric
Cardiovascular: S1-S2, Regular Rhythm, Murmur (n), Rub (n) and Other (Chest incision intact)
Respiratory: Wheeze (n), Crackles (n), Rhonchi (n) and Non-Labored Respirations
GI: Soft, Non Distended and Non Tender
Neurology: Awake, Alert and No Motor Deficits
Skin: Cyanosis (n), Jaundice (n) and Rash (n)
Labs/Micro/Reports
Lab Data
05/03/24 03:53
05/03/24 03:53
[2024-05-03] MEDS: LASIX 40 MG IV (08:28)
[2024-05-03] MEDS: LIDOCAINE 4% PATCH 1 PATCH TOPICAL (08:29)
[2024-05-03] MEDS: PACERONE 200 MG PO ×3 (08:29→21:15)
[2024-05-03] MEDS: PLAVIX 75 MG PO (08:29)
[2024-05-03] MEDS: LOW STRENGTH ASPIRIN 81 MG PO (08:29)
[2024-05-03] MEDS: BACTROBAN 2% OINTMENT 1 APPLIC NASAL ×2 (08:29→21:15)
[2024-05-03] MEDS: NEURONTIN 300 MG PO ×3 (08:30→21:15)
[2024-05-03] MEDS: SENOKOT-S 1 TABLET PO ×2 (08:30→21:15)
[2024-05-03] MEDS: TOPROL XL 25 MG PO (08:30)
[2024-05-03] MEDS: PROTONIX 40 MG PO (08:30)
--- NOTE | 2024-05-03 08:53 | W.PN.UPDATE ---
Update Note
Progress Note Update
Patient with a Medtronic pacer (a sensed, V paced). 2 epicardial K wires and 1 bipolar ventricular wire removed without difficulty. Bedrest x 1 hour with vital sign q 15 minutes x 1 hour.
--- NOTE | 2024-05-03 09:00 | PTCARENOTE ---
Received pt for 7a-7p shift. Pt AAOx3 without complaints. Vpaced on clinical rn manager, VSS, pt OOb in chair eating breakfast. Medications administered as ordered. Patient denies pain at this time. IS up to 1250, encouraged, tolerated. Pt with
scattered rhonchi throughout, wheezing on L, anterior and posterior, respiratory to give neb treatment. IV lasix administered, pt voiding without issues. Pt placed back in bed, V wire pulled by CT OPERATIONS TEAM LEADER. Vital signs and CT drainage monitored per
protocol. Ct to low wall suction, serosanguineous drainage. Patient resting comfortably. Will continue to monitor.
[2024-05-03] MEDS: VENTOLIN NEBULES 2.5 MG INH (09:08)
[2024-05-03] MEDS: TYLENOL 650 MG PO (10:39)
--- NOTE | 2024-05-03 11:14 | PTCARENOTE ---
0900-V wire d/c'd by ADRIANNA Conde. VSS, monitored Q15 per protocol, patient maintained on bedrest for 1 hour, no additional CT drainage.
1030- CT x2 d/c by RN. Patient tolerated without issues. Will continue to monitor patient.
--- NOTE | 2024-05-03 12:55 | PTCARENOTE ---
Pt ambulated approximately 500 feet with RN on room air. Pt tolerated well with mild MCKEON, which resolved after returning to chair. HR 80s-90s during walk. Pt returned to chair in room without issues.
[2024-05-03] MEDS: FLEXERIL 5 MG PO (14:10)
[2024-05-03] MEDS: NSS 500 IV (15:38)
[2024-05-03] MEDS: TORADOL 15 MG IV (15:41)
--- NOTE | 2024-05-03 17:48 | PTCARENOTE ---
Patient c/o b/l shoulder pain. Toradol 15mg IV, tylenol administered as ordered. Patient reassessed, states pain relieved, resting comfortably.
Patient ambulatory in room without issues. Vpaced on secured entrance monitor, VSS. Will continue to monitor.
--- NOTE | 2024-05-03 20:00 | PTCARENOTE ---
Assumed care of patient at 1900. Patient found in bed at time of assessment. Patient is AOx4, follows commands appropriately, moves all extremities. Lung sounds are diminished in the bases , saO2 97% on RA. Heart sounds are audible, patient is 100%
V paced via PPM , normal palpable pulses and trace BLE edema present. Patient has active BS in all four quadrants. Patient is voiding in the bathroom. There is a sternal incision approx with surg adhesive ARCHITECTURAL ENGINEERING TEACHER, an ABD dressing over CT wounds that is
CDI, R groin puncture approx with surg adhesive DINORAH, and RLE incision approx with surg adhesive ecchymotic and ARCHITECTURAL ENGINEERING TEACHER. There is a R IJ cordis receiving KVO and R hand 20G PIV. No c/o pain. Call pozo within reach.
[2024-05-03] MEDS: LIPITOR 40 MG PO (21:15)
--- NOTE | 2024-05-04 | PTCARENOTE ---
Patient reassessed. VSS. Remains 100% vpaced on the monitor. Call pozo within reach.
[2024-05-04 03:24] VITALS: BP 103/66
--- NOTE | 2024-05-04 03:39 | PTCARENOTE ---
Patient reassessed. VSS. Successful BM this morning. Remains 100% vpaced on the monitor. Given 5mg Freda 1x for pain. Labs obtained. Hygiene care provided. Call pozo within reach.
--- NOTE | 2024-05-04 03:50 | W.PN.CT ---
Today's Communication / Plan
-
Plan:
-No major issues overnight. Hemodynamically and neurologically intact. Alert and oriented x 3
-Off all drips
-D/C cordis
-F/U 2-view cxr
-Cont. current meds (ASA, Plavix, Amiodarone, Toprol XL, Lipitor)
-Monitor thrombocytopenia while on ASA/Plavix, 121-> 101-> 99K
-Encourage use of IS
-Encourage smoking cessation. To f/u with Pulm as an outpt.
-Wean off of O2 as tolerated
-OOB into chair/Ambulate
-Home today
Assessment / Plan
-
Assessment:
-S/p Standard sternotomy/ AVR (25 mm bioprosthesis)/CABG x 2 (RSVG to RPDA sequential to RPL)/ EVH RLE/LAAE (35 mm clip), by Dr. Gonzalez, 05/01/24, pod#3
-Severe aortic valve stenosis, symptomatic
-Single-vessel coronary artery disease involving RCA
-LVEF 55%, improved to 60% postop per intraop CONCHIS
-Reduced left ventricular ejection fraction with EF of 45%, chronic congestive systolic and diastolic heart failure
-Mild MR
-Third-degree heart block S/P PPM placement 09/2019
-Hypertension
-Hyperlipidemia
-Prediabetes (Hgb A1C 5.9)
-Active smoker (40 pk/yr)
-Arthritis
-Sciatica/back pain
-Acute postop blood loss/Anemia (stable without transfusion)
-Acute postop thrombocytopenia (no active bleed)
-Acute postop atelectasis
-Acute postop hypovolemia with subsequent hypervolemia
-EKG c/w acute postop pericarditis
Discussed patient care with: Cardiology, Nursing, Respiratory Therapy, Pharmacy and Care Team
Subjective
Procedure
S/p Standard sternotomy/ AVR (25 mm bioprosthesis)/CABG x 2 (RSVG to RPDA sequential to RPL)/ EVH RLE/LAAE (35 mm clip), by Dr. Gonzalez, 05/01/24
-
Date of Service: May 04, 2024
Pt c/o mild incisional pain, otherwise feels well. Ambulating halls without difficulty
Objective Data
-
PT 16.7 Sec (11.4-14.6) H 05/01/24 11:14
INR 1.32 05/01/24 11:14
APTT 32.3 Sec (23.4-35.0) 05/01/24 11:14
Vital Signs
Vital Signs
Temp Pulse Resp BP Pulse Ox
97.8 F 73 18 103/66 97
05/04/24 03:36 05/04/24 03:30 05/04/24 03:36 05/04/24 03:24 05/04/24 03:36
CT Intake/Output/Weight
05/03/24 05/03/24 05/04/24
06:59 18:59 06:59
Intake Total 580 / 1470 250 / 250
Output Total 915 / 1225 1325 / 1325
Balance -335 / 245 -1075 / -1075
SaO2: 97 (RA)
Physical Exam
-
General: Awake, Oriented and AOx3
Cardiovascular: Regular rate & rhythm, No Murmurs, No Rub and No Gallop
Respiratory: Decreased Breath Sounds (at bases, otherwise clear)
Sternum: Stable
Incision: Clean, Dry, Intact and Dressing Intact
Extremities: No Edema
Data Reviewed
-
Lab Results: Results Reviewed
Medications: Active Meds Reviewed
Chest X-Ray: Report Reviewed and Image Reviewed
ECG: Report Reviewed and Image Reviewed
[2024-05-04 04:11] LABS: Blood Urea Nitrogen 25 mg/dl (9-20); Calcium 8.1 mg/dl (8.4-10.2); Carbon Dioxide 29 mmol/L (22-30); Chloride 101 mmol/L (98-107); Estimated Creatinine Clearance 95 ml/min; Glucose 144 mg/dl (70-99); Hematocrit 41.6 % (39.0-52.0); Hemoglobin 14.5 g/dL (13.0-18.0); Magnesium 2.6 mg/dl (1.6-2.3); Mean Corp Hgb Conc. 34.9 g/dL (33.0-37.0); Mean Corpuscular Hgb 31.9 pg (27.0-31.0); Mean Corpuscular Volume 91.4 fL (80.0-94.0); Mean Platelet Volume 10.6 fL (7.4-10.4); Platelet Count 99 10^3/uL (130-400); Potassium 4.2 mmol/L (3.5-5.1); Red Blood Cell Count 4.55 10^6/uL (4.70-6.10); Red Cell Dist. Width 12.6 % (11.5-14.5); Sodium 138 mmol/L (135-145); White Blood Cell Count 10.8 10^3/uL (4.8-10.8); eGFR > 60.00
[2024-05-04 06:00] VITALS: BMI 28.3
[2024-05-04] MEDS: CALCIUM GLUCONATE 100 IV (06:17)
[2024-05-04] MEDS: TYLENOL PO (06:18)
[2024-05-04] MEDS: SENOKOT-S PO (07:45)
[2024-05-04] MEDS: LIDOCAINE 4% PATCH TOPICAL (07:45)
[2024-05-04 07:54] VITALS: BP 104/74
--- NOTE | 2024-05-04 07:57 | W.DCSUMMARY ---
Discharge Summary
Discharge Data
Date of Admission: 05/01/24
Date of Discharge: 05/04/24
-
Pending Results: No
Hospital Course
Primary care physician: Mirna Woodall
Outpatient toolroom helper: Steven Mensah
Inpatient consultants: [facility] Cardiology, Pulmonary Manager Internet
Procedures:
1. Aortic valve replacement, CABG, left atrial appendage clip
Primary Diagnosis:
1. Aortic valve stenosis
Secondary Diagnoses:
1. Third-degree heart block, status post MDT pacemaker implantation (2019)
2. Hypertension
3. Hyperlipidemia
4. HFrEF (45%), chronic congestive systolic and diastolic heart failure
5. Mild mitral valve insufficiency
6. Single-vessel coronary artery disease
7. Prediabetes (Hgb A1C 5.9)
8. Tobacco abuse-current (40 pk/yr)
9. Arthritis
10. Sciatica/back pain
11. Acute postop blood loss anemia-expected
12. Acute postop thrombocytopenia-expected
13. Acute postop hypovolemia with subsequent hypervolemia
14. Acute postop pericarditis
15. Incidental finding on CT scan of multiple sub6 mm pulmonary nodules
HPI: 63 y.o male electively admitted 05/01/24 for AVR & CABG due to severe and CAD with HFrEF (45%)
Hospital course: Patient underwent an aortic valve replacement [#25 mm Inspiris bioprosthesis], CABG x 2 [SVG to RPDA sequential to RPL], and left atrial appendage exclusion [#35 mm clip] with Dr. Zaire Gonzalez. Permanent pacemaker was interrogated
intraoperatively and found to be functioning appropriately. Postprocedure CONCHIS reported an EF of 60% with AV gradients of 10/5 mmHg and trace MR/TR. Patient received no intraoperative blood products and returned to CVICU on Levophed, Precedex, and
insulin. Patient was extubated at 1420 on day of surgery and Levophed was weaned off during the night. On postoperative day 1, patient was delined and Ventura removed. Insulin was discontinued and patient transferred to telemetry status. Aspirin
and Plavix were initiated per protocol. Hemoglobin was noted to be 12 and prophylactic ferric gluconate was discontinued. On postoperative day #2, the temporary atrial and ventricular wires were pulled and mediastinal chest tubes removed. Patient
was diuresed for volume overload and weight trended down to 97.2 kg (baseline 95.6 kg). On postoperative day #3, right IJ cordis was removed. Hemoglobin was 14.5 creatinine 0.9 with platelet count 99k. No postop atrial fibrillation was noted and
prophylactic amiodarone was discontinued on discharge. Patient ambulated in halls with cardiac rehab and was deemed stable for discharge to home. Patient refused NicoDerm patch for tobacco withdrawal and was strongly advised to avoid tobacco
forever. A two-view chest x-ray reported clear lung whitt and no pneumothorax. Patient was informed of incidental finding of pulmonary nodules during preoperative CT scan. Patient met with Dr. Fulton and will follow-up with him as outpatient
for surveillance.
Home medication changes:
Lisinopril 40 mg decreased to 5 mg daily (as BP low normal range while hospitalized)
Discharge Plan
-
Patient Disposition: Home (Routine Discharge)
Discharge Diagnosis/Procedures: aortic stenosis/CAD s/p AVR/CABG x 2/left atrial appendage clip
Condition: Good
Diet: Low Cholesterol and Low Sodium
Activity: No strenuous activity
Driving Restrictions: Not until seen by your Dr
Bathing Restrictions: OK to Shower
Blood Work: CBC in 1 week
Other Services: Cardiac Rehab
Specialty Instructions: Weigh Daily- Call MD for wt gain/loss 3 lbs overnight/5 lbs in 1 week
Referrals:
CT Transitional Care Nurse [Outside] (The Cardiothoracic Transitional Care Nurse will call you to set up a visit in 1-2 days.)
[facility] Cardiac Rehab [Outside] - 06/12/24 1:00 pm
(Cardiac Rehab Orientation appointment is on 06/12/24 at 1:00 pm
The Cardiac Rehab gym is located on the first floor of the [facility].)
Raymond Fulton MD [Active] -
(COPD
Abnormal CT chest
Lung cancer screening
would follow up in next 2-3 mo)
Mirna Woodall DO [Family Provider] -
Brooke Jennings CRNP [Specified Professional Personl] - 06/09/24 2:20 pm
Zaire Gonzalez MD [Active] - 06/01/24 3:00 pm
Prescriptions:
New
acetaminophen 325 mg Tablet
650 mg PO Q4HPRN PRN (Reason: mild pain,headache,temp >101F ) Qty: 0 0RF
clopidogrel 75 mg Tablet
75 mg PO DAILY Qty: 30 1RF
gabapentin 300 mg Capsule
300 mg PO TID Qty: 30 0RF
oxycodone 5 mg Tablet
5 mg PO Q4HPRN PRN (Reason: severe pain) Qty: 20 0RF
cyclobenzaprine 10 mg Tablet
5 mg PO Q8HPRN PRN (Reason: muscle spasm) Qty: 20 0RF
pantoprazole 40 mg Tablet,Delayed Release (Dr/Ec)
40 mg PO DAILY Qty: 30 1RF
lisinopril 5 mg Tablet
5 mg PO DAILY Qty: 30 1RF
Continued
ascorbic acid (vitamin C) [Vitamin C] 500 MG tablet
1,000 mg PO HS
atorvastatin 40 mg tablet
40 mg PO DAILY Qty: 90 3RF
aspirin 81 mg Tablet,Chewable
81 mg PO DAILY Qty: 0 0RF
furosemide [Lasix] 20 mg tablet
20 mg PO DAILY Qty: 90 3RF
metoprolol succinate 25 MG tablet extended release 24 hr
25 mg PO DAILY Qty: 30 11RF
Discontinued
lisinopril 40 mg Tablet
40 mg PO DAILY
Discharge Orders:
Discharge Patient (As Directed); Ordered 05/04/24
Ordered By: Amaya Blanco
Care Plan Goals
Care Plan Goals:
Problem: Readiness for enhanced knowledge related to diagnosis and treatment plan
Goal: Understand your diagnosis and treatment plan needs, including medications if applicable.
Instructions: Know your diagnosis, underlying causes and treatment plan options, including medications if applicable. Consult with your health care team to learn about your diagnosis and treatment plan, including medications if applicable.
Discharge Date and Time
Print Language: VIET[place]ESE
[2024-05-04] MEDS: BACTROBAN 2% OINTMENT 1 APPLIC NASAL (08:30)
[2024-05-04] MEDS: PACERONE 200 MG PO (08:30)
[2024-05-04] MEDS: PLAVIX 75 MG PO (08:30)
[2024-05-04] MEDS: LOW STRENGTH ASPIRIN 81 MG PO (08:30)
[2024-05-04] MEDS: NEURONTIN 300 MG PO (08:31)
[2024-05-04] MEDS: ZESTRIL 5 MG PO (08:31)
[2024-05-04] MEDS: TOPROL XL 25 MG PO (08:31)
[2024-05-04] MEDS: PROTONIX 40 MG PO (08:33)
--- NOTE | 2024-05-04 08:45 | W.PN.CARDCBS ---
Today's Communication / Plan
-
Supportive post op care
Home today per CTS
Impression / Plan
-
Primary Vulcanizing Machine Operator: Dr. Dejon Mensah
Assessment:
-s/p bioAVR, CABG x2, PHILOMENA clip 05/01/24
-Mixed cardiomyopathy, EF 45% by echo preop, EF 55% by CONCHIS post op
-Complete heart block s/p Medtronic DC PPM 10/11/19
MRI December 10, 2019 finds no MRI findings suggestive of a diffuse infiltrative process.
-HTN
-HLD
-Back pain
-Tobacco use
Echo 11/25/2023: EF 45%, moderate concentric LVH, dyskinetic motion with hypokinesis of mid anteroseptum and apical septum, stage I diastolic dysfunction, mitral sclerosis, trace MR, moderate to severe with peak/mean gradients 53/28 mmHg, mild TR,
PAP 23 mmHg
Plan:
-s/p bioAVR, CABG x2, PHILOMENA clip 05/01/24
-Successfully extubated @ 1420 on 05/01/24
-No major issues overnight.
-Cont. current meds (ASA, Plavix, Amiodarone, Toprol XL, Lipitor)
-Monitor thrombocytopenia while on ASA/Plavix, 121-> 101-> 99K
-Encourage use of IS
-Encourage smoking cessation. To f/u with Pulm as an outpt.
-Wean off of O2 as tolerated
-OOB into chair/Ambulate
-Home today
Progress Note - Vulcanizing Machine Operator
Subjective
Date of Service: May 04, 2024
Seen and examined. Ambulating in room. Denies CP/SOB. + BM this am
Objective
Labs:
05/04/24 03:32
05/04/24 03:32
Labs
Hgb 14.5 g/dL (13.0-18.0) D 05/04/24 03:32
Hct 41.6 % (39.0-52.0) 05/04/24 03:32
Plt Count 99 10^3/uL (130-400) L 05/04/24 03:32
PT 16.7 Sec (11.4-14.6) H 05/01/24 11:14
INR 1.32 05/01/24 11:14
APTT 32.3 Sec (23.4-35.0) 05/01/24 11:14
Sodium 138 mmol/L (135-145) 05/04/24 03:32
Potassium 4.2 mmol/L (3.5-5.1) 05/04/24 03:32
BUN 25 mg/dl (9-20) H 05/04/24 03:32
Creatinine 0.9 mg/dL (0.7-1.3) 05/04/24 03:32
Glucose 144 mg/dl (70-99) H 05/04/24 03:32
Vital Signs and I&O:
Vital Signs
Temp Pulse Resp BP Pulse Ox
98.6 F 80 17 104/74 97
05/04/24 08:00 05/04/24 08:31 05/04/24 08:00 05/04/24 08:31 05/04/24 08:42
Vital Signs
Temp Pulse Resp BP Pulse Ox
98.6 F 80 17 104/74 97
05/04/24 08:00 05/04/24 08:31 05/04/24 08:00 05/04/24 08:31 05/04/24 08:42
Intake & Output
05/02/24 05/03/24 05/04/24 05/05/24
06:59 06:59 06:59 06:59
Intake Total 347.5 / 347.5 1470 / 1470 370 / 370 270 / 270
Output Total 1645 / 1645 1225 / 1225 1325 / 1325
Balance -1297.5 / -1297.5 245 / 245 -955 / -955 270 / 270
Physical Exam
Physical Exam
General: No acute distress, AAOX3
Heart: Regular, positive S1/S2, Left-sided dual-chamber cardiac pacemaker in place.
Lungs: CTA b/l, negative wheezes/rales/rhonchi
Abd: Positive BS, NT/ND, neg rebound/rigidity/guarding
Ext:trace edema
--- NOTE | 2024-05-04 09:04 | PTCARENOTE ---
Patient received from comber setter resting comfortably in bed, AAO x 3, states pain controlled at this time. V-paced via ppm, SaO2 @ 97% on RA. RIJ Cordis w/kvo infusing. All procedural sites stable. Patient updated to plan of care for the day, in
agreement. See work list for full assessment and interventions performed.
[2024-05-04] MEDS: NSS IV (09:26)
[2024-05-04 10:32] VITALS: BP 128/70
[2024-05-04 10:41] VITALS: BP 149/68
[2024-05-04 10:44] VITALS: BP 128/70; BP 149/65; PULSE 78; O2SAT 97; O2SAT 99
--- NOTE | 2024-05-04 11:01 | CM ---
shane babcock remaind home with S.O. today, and f/u visit from the [facility] transitional care nurse
[2024-05-04 11:36] VITALS: BP 121/78
--- NOTE | 2024-05-04 11:50 | PTCARENOTE ---
VS obtained, assessment stable. Patient ambulating ad shirin. Stairs completed w/CR. For d/c home.
--- NOTE | 2024-05-04 12:49 | PTCARENOTE ---
Patient set up to shower, completed independently. PIV removed. Discharge instructions thoroughly reviewed w/patient, all questions answered. Patient and all belongings transported to waiting vehicle for d/c home.
== END 2024-05-04 13:14 | disposition home or self-care (01) | DRG 220 ==
LOC: CVICU 04:49
PROVIDERS: Anesthesiology; Physician Assistant Surgical; ADMITTING PHYSICIAN Thoracic Surgery (Cardiothoracic Vascular Surgery); CONSULT PHYSICIAN Internal Medicine Cardiovascular Disease; CONSULT PHYSICIAN Internal Medicine Critical Care Medicine; FAMILY PHYSICIAN Family Medicine
PROC: 5A1221Z Performance of Cardiac Output, Continuous (ICD-10-PCS; 2024-05-01)
PROC: 4B02XSZ Measurement of Cardiac Pacemaker, External Approach (ICD-10-PCS; 2024-05-01)
PROC: B24BZZ4 Ultrasonography of Heart with Aorta, Transesophageal (ICD-10-PCS; 2024-05-01)
PROC: 02L70CK Occlusion of Left Atrial Appendage with Extraluminal Device, Open Approach (ICD-10-PCS; 2024-05-01)
PROC: 02RF08Z Replacement of Aortic Valve with Zooplastic Tissue, Open Approach (ICD-10-PCS; 2024-05-01)
PROC: 021109W Bypass Coronary Artery, Two Arteries from Aorta with Autologous Venous Tissue, Open Approach (ICD-10-PCS; 2024-05-01)
PROC: 06BP4ZZ Excision of Right Saphenous Vein, Percutaneous Endoscopic Approach (ICD-10-PCS; 2024-05-01)
DX: I35.0 Nonrheumatic aortic (valve) stenosis (principal); D62 Acute posthemorrhagic anemia; I44.2 Atrioventricular block, complete; I50.42 Chronic combined systolic (congestive) and diastolic (congestive) heart failure; I47.20 Ventricular tachycardia, unspecified; I30.8 Other forms of acute pericarditis; I42.8 Other cardiomyopathies; J98.11 Atelectasis; D69.59 Other secondary thrombocytopenia; E86.1 Hypovolemia; I25.10 Atherosclerotic heart disease of native coronary artery without angina pectoris; I11.0 Hypertensive heart disease with heart failure; E78.5 Hyperlipidemia, unspecified; E66.9 Obesity, unspecified; Z68.27 Body mass index [BMI] 27.0-27.9, adult; F17.210 Nicotine dependence, cigarettes, uncomplicated; I25.5 Ischemic cardiomyopathy; I34.0 Nonrheumatic mitral (valve) insufficiency; I65.22 Occlusion and stenosis of left carotid artery; R91.8 Other nonspecific abnormal finding of lung field; R73.03 Prediabetes; M54.30 Sciatica, unspecified side; M19.90 Unspecified osteoarthritis, unspecified site; J44.9 Chronic obstructive pulmonary disease, unspecified; Z95.0 Presence of cardiac pacemaker; Z86.16 Personal history of COVID-19; Z79.82 Long term (current) use of aspirin
CPT/HCPCS: 88305; 88311; 94727; 94729; 36415; 71045; 71046; 80048; 80053; 81003; 81015; 82248; 82330; 82565; 82805; 82947; 82962; 83036; 83735; 84132; 84302; 84520; 85014; 85018; 85025; 85027; 85049; 85610; 85730; 86850; 86900; 86901; 86920; 87070; 93005; 93312; 93320; 93325; 93880; 94002; 94010; 94060; 94640; J2916

== ENCOUNTER → 2024-08-14 15:02 | Outpatient (REF) | payer OTHER, SELFPAY | LOC: RCS 15:02 | PROVIDERS: ATTENDING PHYSICIAN Nurse Practitioner; FAMILY PHYSICIAN Family Medicine | DX: I42.8 Other cardiomyopathies (principal) | CPT/HCPCS: 93306 ==